=== PATIENT | female | born 1970 | race Caucasian/White ===

== ENCOUNTER 2020-06-12 11:00 | Day surgery (SDC) | payer BC ==
[2020-06-09 11:59] LABS: BASOPHILS 0.2 % (0-2); EOSINOPHILS 4.4 % (0-7); HEMATOCRIT 43.2 % (36.0-48.0); HEMOGLOBIN 14.4 g/dL (12-16); IMMATURE GRANULOCYTES 1.3 % (0-5); LYMPHOCYTE ABS# 2.31 10x3/uL (1.18-3.74); LYMPHOCYTES 24.7 % (15-50); MCH 30.7 pg (26.0-34.0); MCHC 33.3 g/dL (31.0-37.0); MCV 92.1 fL (80.0-100.0); MEAN PLATELET VOLUME 9.7 fL (7.4-10.4); MONOCYTES 6.7 % (2-11); NEUTROPHIL ABS# 5.88 10x3/uL (1.56-6.13); NEUTROPHILS 62.7 % (40-80); PLATELET COUNT 265 10x3/uL (130-400); RBC 4.69 10x6/uL (4.00-5.40); RDW 13.1 % (11.5-14.5); WBC 9.4 10x3/uL (4.8-10.8)
[2020-06-09 12:07] LABS: ANION GAP 11.7 mmol/L (8-16); CALCIUM 8.8 mg/dL (8.5-10.1); CARBON DIOXIDE 25.2 mmol/L (21.0-32.0); POTASSIUM - SERUM 3.9 mmol/L (3.5-5.1)
[2020-06-09 12:17] LABS: SARS-CoV-2 ANTIGEN NEGATIVE- SARS-COV-2 (NEGATIVE)
[2020-06-09 12:22] LABS: UDS - AMPHET NEGATIVE QUAL (NEGATIVE); UDS - BARB NEGATIVE QUAL (NEGATIVE); UDS - BENZO NEGATIVE QUAL (NEGATIVE); UDS - COCAINE NEGATIVE QUAL (NEGATIVE); UDS - OPIATE POSITIVE QUAL (NEGATIVE); UDS - PCP NEGATIVE QUAL (NEGATIVE); UDS - THC NEGATIVE QUAL (NEGATIVE)
[~2020-06-12] VITALS: Ht 167.6 cm; Wt 113.6 kg
--- NOTE | ~2020-06-12 | OP ---
PATIENT NAME: VENANCIO SOMMER MEDICAL RECORD: [id number] :74 LOCATION:D.OPS ADMISSION DATE: SURGEON: DESTIN CASEY MD DATE OF OPERATION: 06/12/2020 PREOPERATIVE DIAGNOSES: 1. Cystocele. 2. Rectocele. POSTOPERATIVE DIAGNOSES: 1. Cystocele. 2. Rectocele. PROCEDURE PERFORMED: 1. Anterior colporrhaphy. 2. Posterior colporrhaphy. 3. Cystoscopy. SURGEON: Destin Casey MD NEONATAL CRITICAL CARE NURSE: Alma Siddiqi ANESTHESIOLOGIST: Dr. Magana ANESTHETIC: General. FINDINGS: Second-degree cystocele was noted as well as a 3rd third-degree rectocele. The mucosa is unremarkable. Vaginal cuff is unremarkable at the time of cystoscopy. Unremarkable vaginal mucosa. Good flow of urine from both ureteral orifices. SPECIMEN REMOVED: Not applicable. SPECIMEN DISPOSITION: Not applicable. ESTIMATED BLOOD LOSS: Less than or equal to 100 cc. FLUIDS: 1200 cc of lactated Ringer's. URINE OUTPUT: 75 cc of clear urine. COMPLICATIONS: None. DRAINS: Lawson to gravity with vaginal packing. INDICATION: The patient is a 50-year-old female with symptomatic cystocele and rectocele. The patient declines pessary and desires definitive treatment. The patient has been counseled in regards to the possible use of biologics. DESCRIPTION OF PROCEDURE: After informed consent was assured, the patient was taken to the operating room where anesthetic was obtained without difficulty. The patient was placed in candycane stirrups and prepped and draped in the usual sterile fashion. Weighted speculum was introduced to retract the posterior vault and Allis clamps placed approximately a 1.5 to 2 cm below the urethra and at the apex of the vagina. This area is now injected with 0.5% lidocaine and OPERATIVE REPORT [id number] VENANCIO SOMMER epinephrine solution. After hydrodissection was completed, an incision was made with a 15 blade. Dissection begins on the right. Using barrel clamps and placing a finger behind the dissected tissue, sharp dissection begins. Once the vaginal mucosa begins to be mobilized, cottonoids were used to bluntly dissect this area free. This was repeated on the patient's contralateral side. [place] retractor was now placed and the vaginal mucosa retracted laterally with good visualization of the endopelvic fascia. Horizontal mattress stitches are now placed from posteriorly to anteriorly and held on hemostats. Gelfoam was placed in the corners and in the midline as the stitches were tied sequentially from posterior anteriorly with good support of the bladder. Before the mucosa was closed, a cystoscopy was performed. The patient has been given methylene blue and there was good efflux of blue-tinged urine from both right and left ureteral orifices. Bladder mucosa is inspected and found to be intact. The bladder was now drained and the Lawson catheter started. The mucosa overlying the anterior repair is now closed with a running stitch of Vicryl. This begins posteriorly and concludes anteriorly. Excess mucosa has been trimmed. Attention is now directed posteriorly. With the 2 Allises at the introitus placed at approximately 5 and 7 o'clock positions, a transverse incision was made. The deep spaces of the posterior vulva injected with 0.5% lidocaine and epinephrine solution. A V-shaped incision is now placed over the perineal body. Elevating the vaginal mucosa of the right posterior vault, sharp dissection begins. This began sharply and concludes with cottonoid blunt dissection. This was repeated on the patient's contralateral side. Once the tissues had been mobilized, the over-glove was placed on the left hand of the grain wafer machine operator, inserted into the rectum and the full defect is observed. Endopelvic fascia was identified in both right and left sides of the defect and using horizontal mattress stitches beginning posteriorly and working anteriorly, the defect is closed. Again, Gelfoam was used to obtain hemostasis. The posterior mucosa is now trimmed and closed with a running stitch of Vicryl. The stitches taken through the introitus down at the most posterior aspect of the perineal incision, and the skin reapproximated with a subcuticular close and then passed back into the vagina and tied. After this stitch has been secured, vaginal packing was placed after placing petroleum jelly and triple antibiotic solution on this. The patient was taken down from [facility] and went to the recovery area in stable condition. All instruments and needle count as well as sponge and cottonoid count is correct times 2. TRANSINT:[id number] Voice Confirmation ID: [id number] DOCUMENT ID: [id number] DESTIN CASEY MD CC: [id number] DICTATION DATE: 06/24/20 161 MILK RECEIVER TANK TRUCK: 06/25/20 0009 [facility] 06/13/[address] [facility] [address] [id number]
[2020-06-12 08:57] VITALS: BP 114/70; BMI 40.6
[~2020-06-12 11:00] MED LIST: BENADRYL25 MG PO; CENTRUM SILVER1 EAC3 PO; CYCLOBENZAPRINE10 MG PO; DITROPAN XL 1010 MG PO; ESTRACE1 MG PO; FENOFIBRATE160 MG PO; HYDROCODON-ACE1 EA10; LISINOPRIL-HCT1 EAC8 PO; MOBIC7.5 MG PO; MUCINEX DM ER1 EAC1 PO; POTASSIUM CHLO20 MEQ PO; PROZAC20 MG PO
[2020-06-12 16:44] VITALS: BP 109/60
--- NOTE | 2020-06-12 16:45 | NUR ---
RECEIVED BY ROMA FROM RECOVERY ROOM, SHE IS AWAKE AND ABLE TO MOVE SELF OVER TO ROOM BED WITHOUT COMPLAINT. IV TO LEFT HAND INFUSING LR VIA PUMP PER ORDERS. SELBY CATH TO BEDSIDE DRAIN WITH 100ML CLEAR URINE NOTED. PT C/O PRESSURE FROM VAG PACKING BUT DENIES PAIN FROM THIS, RATES PAIN AT 5/10 IN LOWER ABDOMEN. O2 VIA NC AT 2L/MIN. SHE DENIES NAUSEA AND ASKING FOR SPRITE TO DRINK. DIETARY NOTIFIED FOR REGULAR DIET TRAY. SIDE RAILS UP X 2 WITH CALL LIGHT IN REACH.
--- NOTE | 2020-06-12 17:30 | NUR ---
TORDAL DILUTED WITH 3ML NS GIVEN IVP PER ORDERS. PT RATES PAIN AT 5/10. REGUALR DIET BROUGHT TO ROOM AND PT ABLE TO SIT HERSELF UP TO EAT WITHOUT COMPLAINT. SIDE RAILS UP X 2 WITH CALL LIGHT IN REACH.
--- NOTE | 2020-06-12 19:40 | NUR ---
ROUNDS MADE, PT RESTING, INFORMED PT THAT I WILL BE BACK SHORTLY TO DO ASSESSMENT AND TRANSFER HER TO ANOTHR ROOM, PT VERBALIZES UNDERSTANDING, DENIES NEEDS AT THIS TIME
[2020-06-12 20:38] VITALS: BP 107/56; Ht 167.6 cm; Wt 113.6 kg
--- NOTE | 2020-06-12 20:38 | NUR ---
PT TRANSFERRED VIA BED TO ROOM 1278 PER THIS RN AND FANNY VALERIO RN, ASSESSMENT PER FLOW SHEET, ADMISSION HISTORY AND ASSESSMENT DONE PER FLOW SHEET, IV IN LEFT HAND INTACT WITH NO REDNESS OR EDEMA INFUSING VIA PUMP NS AT 125 ML/HR, SELBY CATH AND VAG PACK INTACT, PT C/O PAIN AND SLIGHT NAUSEA, WILL ADM PAIN MED AND ZOFRAN
--- NOTE | 2020-06-12 21:05 | NUR ---
ADM PAIN MED AND ZOFRAN, NEW BAG OF LR HUNG PER MD ORDERS, SEE EMAR, FRESH H20 AND CRACKERS SERVED, PT ORIENTED TO ROOM, BED IN LOW POSITION, SIDE RAILS X 2, CALL LIGHT IN REACH
--- NOTE | 2020-06-12 22:24 | NUR ---
PT AROUSES TO OPENING OF DOOR, DENIES NEEDS OR PAIN AT THIS TIME
[2020-06-13 00:08] VITALS: BP 101/59
--- NOTE | 2020-06-13 00:08 | NUR ---
PT AWAKE, VS OBTAINED, PT STATES "I FEEL MORE UNCOMFORTABLE ON THE LEFT SIDE OF MY VAGINA", VAGINA ASSESSED, VAGINA INTACT WITH NO REDNESS OR EDEMA, VAG PACK AND SELBY IN PLACE, ADM NEURONTIN PER MD ORDERS, SEE EMAR, WITH FRESH H20, EMPTIED SELBY CATH, FRESH H20 SERVED, PT DENIES FURTHER NEEDS AT THIS TIME
--- NOTE | 2020-06-13 02:55 | NUR ---
PT KETTLEMAN LIGHT, PT C/O VAG PAIN, ADM PERCOCET PER MD ORDERS, SEE EMAR, PT DENIES FURTHER NEEDS
[2020-06-13 04:16] VITALS: BP 102/64
--- NOTE | 2020-06-13 04:16 | NUR ---
PT AROUSES TO OPENING OF DOOR, VS OBTAINED, SELBY CATH EMPTIED, PUMPS CLEARED, ADM TORADOL SIVP PER MD ORDERS, SEE EMAR, SCD'S CONTINUE ON AND WORKING PROPERLY, PT REQUESTED AND SERVED FRESH H20, DENIES FURTHER NEEDS
[2020-06-13 05:57] LABS: HEMATOCRIT 35.5 % (36.0-48.0); HEMOGLOBIN 11.6 g/dL (12-16); MCH 30.4 pg (26.0-34.0); MCHC 32.7 g/dL (31.0-37.0); MCV 93.2 fL (80.0-100.0); MEAN PLATELET VOLUME 9.7 fL (7.4-10.4); RBC 3.81 10x6/uL (4.00-5.40); RDW 12.6 % (11.5-14.5); WBC 15.1 10x3/uL (4.8-10.8)
--- NOTE | 2020-06-13 06:53 | NUR ---
SHIFT REPORT TO DAY SHIFT
[2020-06-13 07:34] VITALS: BP 132/69
--- NOTE | 2020-06-13 07:34 | NUR ---
AM ASSESSMENT COMPLETED CHARTED TO FLOWSHEET. VSS AND PT RATES PAIN AT 4/10 BUT DENIES PAIN MED AT THIS TIME. IV TO LEFT HAND PATENT WITH NO TENDERNESS WITH TOUCH AND INFUSINN LR PER ORDERS. SELBY CATH TO BEDSIDE GRAIN WITH 100ML CLEAR URINE NOTED. SCD'S BILAT AND ON PUMP. REGULAR DIET PER DIETARY. SIDE RAILS UP X 2 WITH CALL LIGHT IN REACH.
--- NOTE | 2020-06-13 08:12 | NUR ---
PT COMPLAINS OF ITCHING ON HER ARMS THAT SHE STATES WAS PRESENT PRIOR TO ADMISSION. ASKING FOR BENADRYL CREAM OR TABLET IF POSSIBLE. DR CASEY CALLED FOR NEW ORDERS, REPORT GIVEN OF PT REQUEST FO PO BENADRYL, NEW ORDERS RECEIVED.
--- NOTE | 2020-06-13 10:30 | NUR ---
RATES PAIN AT 6/10, MEDS GIVEN SCANNED TO EMAR. LARGE ICE WATER REQUSTED.
--- NOTE | 2020-06-13 10:48 | NUR ---
IV DISCONTINUED AND REMOVED WITH CATH INTACT. PT ASK THAT SHE BE ABLE TO EAT LUNCH THEN GET SELBY CATH TAKEN OUT. REASSURED HER THAT WAS OK AND TO PLEASE CALL NURSE WHEN SHE IS READY.
--- NOTE | 2020-06-13 11:58 | NUR ---
CALLED TO ROOM, RATES PAIN AT 2/10. VERBALLY EXPLAINED TO PT WHAT TO EXPECT WITH VAG PACKING REMOVEAL AND SHE DENIES QUESTIONS. SELBY BULP/REMOVEAL PER PROTOCOL AND PACKING REMOVED INTACT WITHOUT DIFFICULTY. PT TOLERATES WELL AND DENIES INCREASED PAIN AT THIS TIME. SHE IS ABLE TO SIT UP ON SIDE OF BED WITHOUT C/O NAUSEA OR DIZZINESS AMB TO BATHROOM PER SELF AND VOIDS APPROX 75ML DARK URINE. PT GIVEN WARM WET WASH CLOTHS, OLEGARIO PAD AND MESH BRIEFS AND CLEAN GOWN. WALKING ABOUT ROOM WITHOUT COMPLAINTS.
--- NOTE | 2020-06-13 13:47 | NUR ---
PAIN MED GIVEN FOR PAIN AT 10/04. LARGE ICE WATER REQUESTED. PT UNDERSTANDS TO LET NURSE KNOW WHEN SHE VOIDS. NO OTHER NEEDS AT THIS TIME.
--- NOTE | 2020-06-13 14:00 | NUR ---
CALLED TO ROOM, PT HAS VOIDED 400ML WITHOUT COMPLAINTS. DR CASEY NOTIFIED AND MAY PROCEED WITH DISCHARGE.
[2020-06-13] MEDS ORDERED: NEURONTIN 300300 MG PO (14:04)
[2020-06-13] MEDS ORDERED: PERCOCET 7.5/321 TAB PO (14:05)
--- NOTE | 2020-06-13 14:15 | NUR ---
VERBAL AND WRITTEN D/C INSTRUCTIONS GONE OVER WITH WRITTEN SCRIPTS FOR PERCOCET 7.5/325MG AND NEUROTIN 300MG WITH PRINTED INFO ON EACH. SHE DENIES QUESTIONS OR CONCERNS. TAKEN OUT BY WHEELCHAIR HOME BY PRIVATE CAR WITH FAMILY
== END 2020-06-13 14:27 | disposition home or self-care (01) ==
LOC: D.OPS 11:00 → D.LD 17:25 → D.SDCHOLD 06-13 13:50 → D.LD 06-13 13:52 → D.OPS 06-13 14:27
PROVIDERS: ATTEND Obstetrics & Gynecology
DX: N81.10 Cystocele, unspecified (principal); N81.6 Rectocele

== ENCOUNTER 2020-06-15 21:53 | Inpatient (IN) | payer MEDICAID ==
[~2020-06-15] VITALS: Ht 167.6 cm; Wt 127.5 kg
[~2020-06-15 21:53] MED LIST changes: +NEURONTIN 300300 MG PO; +PERCOCET 7.5/321 TAB PO
[2020-06-15 22:40] LABS: BASOPHILS 0.2 % (0-2); EOSINOPHILS 0.3 % (0-7); HEMATOCRIT 45.1 % (36.0-48.0); HEMOGLOBIN 15.1 g/dL (12-16); IMMATURE GRANULOCYTES 0.5 % (0-5); LYMPHOCYTE ABS# 0.52 10x3/uL (1.18-3.74); MCHC 33.5 g/dL (31.0-37.0); MCV 92.6 fL (80.0-100.0); MONOCYTES 6.3 % (2-11); NEUTROPHIL ABS# 15.66 10x3/uL (1.56-6.13); NEUTROPHILS 89.7 % (40-80); RBC 4.87 10x6/uL (4.00-5.40); RDW 12.9 % (11.5-14.5); WBC 17.5 10x3/uL (4.8-10.8)
[2020-06-15 22:41] LABS: PLATELET COUNT 257 10x3/uL (130-400)
[2020-06-15 22:48] LABS: ANION GAP 13.5 mmol/L (8-16); CALCIUM 9.5 mg/dL (8.5-10.1); CARBON DIOXIDE 24.9 mmol/L (21.0-32.0); CREATININE - SERUM 1.2 mg/dL (0.6-1.3); POTASSIUM - SERUM 4.4 mmol/L (3.5-5.1)
[2020-06-15 22:55] LABS: ALBUMIN 3.2 g/dL (3.4-5.0); BILIRUBIN - TOTAL 0.74 mg/dL (0.2-1.3); PROTEIN - SERUM 7.4 g/dL (6.4-8.2)
[2020-06-16] VITALS (43 sets, daily range): BP systolic 52–115; BP diastolic 9–96; BMI 40.4
[2020-06-16 00:53] LABS: BILIRUBIN NEGATIVE (NEGATIVE); KETONE SMALL mg/dL (NEGATIVE); NITRITE NEGATIVE (NEGATIVE); UROBILINOGEN NORMAL mg/dL (< 2)
[2020-06-16 00:55] LABS: BACTERIA FEW HPF (NONE SEEN); SQUAMOUS EPITHELIAL 0-5 HPF (0-4); WHITE CELLS - URINE 0-5 HPF (0-4)
--- NOTE | 2020-06-16 01:35 | NUR ---
1000 ML DARK ANGELICA URINE EMPTIED FROM SELBY
--- NOTE | 2020-06-16 02:05 | NUR ---
PT REC'D FROM ER ON STRETCHER AT THIS TIME. LARGE SEMI SOLID STOOL NOTED.. SELBY CATH ON PLACE. PT CLEANED AND REPOSITIONED AT THIS TIME. PT 87% ON ROOM AIR. O2 PLACED AT 2 L VIA NC. 0225 O2 SAT NOTED WITH MINIMAL CHANGE. OXYGEN INCREASED TO 3L VIA NC.PT DROWSEY AND BREATHING THROUGH MOUTH. Taj STEWART RN
--- NOTE | 2020-06-16 02:25 | NUR ---
PT OXYGEN SATURATION REMAINS LOW AT THIS TIME. PULSE OX 86% ON 2 LITERS O2 NASAL CANULA. O2 INCREASED TO 3 L N/C. L NAUN STEWART
--- NOTE | 2020-06-16 02:47 | NUR ---
PT O2 SATURATION 87% AT THIS TIME. OXYGEN INCREASED TO 3.5 L VIA NC. Taj STEWART RN
--- NOTE | 2020-06-16 03:00 | NUR ---
PT 90% ON 4L NC WITH CURRENT OXYGEN SATURATION 92-94%. L PAT RN
--- NOTE | 2020-06-16 03:32 | NUR ---
PT WITH O2 AT OF 91% O2 PLACED VIA MASK AT 5 L. 0340 MD CALLED AT THIS TIME. REPORTED DECREASED O2 SATSOF 91-92% ON 5 L VIA FACE MASK. ORDER REC'D FOR ABG AND CT FOR PE. Taj STEWART RN
--- NOTE | 2020-06-16 03:45 | NUR ---
RADIOLOGY CALLED AT THIS TIME. INFORMED OF NEED FOR CT. RADIOLOGY STATES THAT SHE IS UNABLE TO RECEIVE CONTRAST FOR 24 HOURS BECAUSE SHE HAS HAD CONTRAST AND VOMITED PROFUSELU AND PROTOCOL IS THAT NO ADDITIONAL CONTRAST BE GIVEN WITH IN 24 HOURS. RESPIRATORY ALSO NOTIFIED OD NEED FOR ABG. RESPIRATORY ON UNIT AT 0350 FOR PATIENT ASSESSMENT. RESPIRATORY PLACED OT ON 5 L VIA NC AND STATES THAT THEY WILL RETURN TO DRAW ABGS. Taj STEWART RN
--- NOTE | 2020-06-16 03:53 | NUR ---
CALLED AT THIS TIME. INFORMED FOF INABILITY TO PERFORM CT DUE TO PREVIOUS CONTRAST ADMINISTRATION. VQ SCAN ORDERED ALONG WITH CHEST XRAY. Taj STEWART RN
--- NOTE | 2020-06-16 04:15 | NUR ---
RADIOLOGY HERE FOR [facility] X RAY. Taj STEWART RN
--- NOTE | 2020-06-16 04:28 | NUR ---
RESPIRATORY HERE FOR ABGS. Taj STEWART RN
--- NOTE | 2020-06-16 06:36 | NUR ---
DR CASEY CALLED UNIT AT THIS TIME. INFORMED OF ABB AND CXR RESULTS. ALSO INFORMED OF PT URINE OUT PUT AND INPUT WITH CURRENT O2 SATS. ORDER REC'D TO D/C DILAUDD. AND REORDER HOME DOSE OF HYDROCODONE, ORDER PATIENT A REGULAR DIET AND BOLUS PATIENT A FULL LITER OF CURRENT IV FLUIDS. BOLUS STARTED AT 0643 TO THE LEFT HAND APPROXIMATELY 500 IN CURRENT BAG. Taj STEWART RN
--- NOTE | 2020-06-16 07:14 | NUR ---
OFF UNIT WITH RADIO RECORDER.
--- NOTE | 2020-06-16 07:57 | NUR ---
REC'D BACK TO ROOM FROM RADIOLOGY WITH C/O PAIN.
--- NOTE | 2020-06-16 08:21 | NUR ---
SHIFT ASSESSMENT COMPLETED. VSS WITH TACHYCARDIA NOTED, O2 SAT STABLE ON 5 L O2 AT 97%. DECREASED O2 TO 4L WITH DROP OF SATS INTO HIGH 80'S, O2 INCREASED BACK TO 5L WITH INCREASE IN SATS TO 92%-98%. DROWSY BUT EASILY AROUSABLE TO VOICE, FALLS ASLEEP MID SENTENCE BUT ON SPOKEN TO PICKS BACK UP WITH SENTENCE/THOUGHT. BREATH SOUNDS CLEAR AND EQUAL BILATERALLY. BOWELS SOUNDS PRESENT AND ACTIVE X4 QUADRANTS, ABD DISTENDED, REPORTS INCREASED TENDERNESS TO ABD. SELBY PRESENT AND DRAINING TO BEDSIDE DRAINAGE, URINE ANGELICA COLORED. LOOSE WATERY STOOL NOTED. PERICARE DONE, GOWN LINENS, TOWELS AND CHUX CHANGED. VAGINAL SUTURES NOTED, WELL APPROXIMATED, NO S/S OF INFECTION NOTED. REFUSES SCD'S AT THIS TIME, EDUCATION PROVIDED. POC DISCUSSED WITH PT. BED IN LOW POSITION WITH SRUP X2. CALL LIGHT AND PHONE WITHIN REACH.
--- NOTE | 2020-06-16 08:49 | NUR ---
PT'S DAUGHTER CALLS UNIT REQUESTING STATUS UPDATE. VERBAL PERMISSION FROM PT FOR RN TO SPEAK WITH DAUGHTER. PT DENIES WANTING TO SPEAK TO SPEAK WITH PT D/T PAIN, STATES THAT PAIN MEDICATION HAS NOT RELIEVED PAIN AT THIS TIME.
--- NOTE | 2020-06-16 09:02 | NUR ---
RN BACK TO ROOM. PT AROUSES TO VOICE, CONTINUES TO REPORT THAT PAIN LEVEL REMAINS 9/10. REQUESTING ADDITIONAL INTERVENTION. WILL NOTIFY DR. CASEY.
--- NOTE | 2020-06-16 09:11 | NUR ---
SPOKE WITH DR. CASEY REGARDING PT C/O PAIN AND INTERVENTIONS TO THIS POINT WELL PT'S NEURO STATUS. PER DR. CASEY HE WILL PLACE ORDERS.
--- NOTE | 2020-06-16 09:13 | NUR ---
BOLUS COMPLETED. RATED DECREASED BACK TO 125 MLS/HR.
--- NOTE | 2020-06-16 10:24 | NUR ---
TO ROOM TO CHECK ON PATIENT. PT RESTING WITH EYES CLOSED. BP ALARM SOUNDING-PT AROUSED THIS NURSE WALKED TO MONITOR TO SILENCE ALARM. PT STATES 'I AM HURTING A LOT". PT STATES PAIN IS ACROSS LOWER ABDOMEN. PT'S PRIMARY NURSE NOTIFIED OF REPORTED PAIN.
--- NOTE | 2020-06-16 11:07 | NUR ---
DR. CASEY AT BEDSIDE DISCUSSING POC WITH PT AND PAIN MGMT.
--- NOTE | 2020-06-16 11:32 | NUR ---
NEW BAG FLUIDS HUNG TO CONTINUE TO INFUSE AT BOLUS RATE FOR 300 MLS. PT AA&OX3. REQUESTING EXTRA PILLOWS. ENCOURAGED PO INTAKE OF FLUIDS AND FOODS, VERBALIZES UNDERSTANDING.
--- NOTE | 2020-06-16 11:54 | NUR ---
500 MLS D5LR FLUID BOLUS COMPELTED PRE ORDER. RATE DECREASED BACK TO 125 MLS/HR.
--- NOTE | 2020-06-16 11:59 | NUR ---
DR. CASEY NOTIFIED THAT PT MEETS CRITERIA FOR SEPSIS MEASURES. ORDERS REC'D AND ORDERS REC'D TO TRANSFER TO MED-SURG.
--- NOTE | 2020-06-16 12:11 | NUR ---
D5LR FLUID RATE INCREASED TO 150 MLS/HR.
--- NOTE | 2020-06-16 12:17 | NUR ---
V/S GIVEN IN REPORT TO DR. ESCOBEDO PER Vero STEVENS RN
--- NOTE | 2020-06-16 12:18 | NUR ---
SPOKE WITH DR. ESCOBEDO, PER MD, TRANSFER TO ICU, MD WILL SEE PT THERE. QUALITY ASSURANCE SUPERVISOR CALLED FOR BED ASSIGNMENT.
--- NOTE | 2020-06-16 13:07 | NUR ---
SPOKE WITH WHITNEY IN ICU. AWAITING ROOM TO BE CLEANED FOR TRANSFER.
--- NOTE | 2020-06-16 16:00 | NUR ---
REASESSED PAIN AFTER GIVING MORPHINE PRN AND SCHEDULED TORADOL. PT WAS RESTING WITH EYES CLOSED AND UPON VERBAL AROUSE. PT REPORTS PAIN RATED 8/10.
[2020-06-16 17:57] LABS: BASOPHILS 0.2 % (0-2); EOSINOPHILS 0.2 % (0-7); HEMATOCRIT 46.9 % (36.0-48.0); HEMOGLOBIN 15.5 g/dL (12-16); IMMATURE GRANULOCYTES 0.5 % (0-5); LYMPHOCYTE ABS# 0.43 10x3/uL (1.18-3.74); LYMPHOCYTES 10.2 % (15-50); MCH 30.9 pg (26.0-34.0); MCV 93.6 fL (80.0-100.0); MEAN PLATELET VOLUME 9.6 fL (7.4-10.4); MONOCYTES 9.7 % (2-11); NEUTROPHIL ABS# 3.34 10x3/uL (1.56-6.13); NEUTROPHILS 79.2 % (40-80); PLATELET COUNT 290 10x3/uL (130-400); RBC 5.01 10x6/uL (4.00-5.40); RDW 13.3 % (11.5-14.5)
[2020-06-16 18:00] LABS: WBC 4.2 10x3/uL (4.8-10.8)
[2020-06-16 19:22] LABS: ANION GAP 17.9 mmol/L (8-16); CALCIUM 8.4 mg/dL (8.5-10.1); POTASSIUM - SERUM 4.9 mmol/L (3.5-5.1)
[2020-06-16 19:27] LABS: BILIRUBIN - TOTAL 2.3 mg/dL (0.2-1.3); PROTEIN - SERUM 5.6 g/dL (6.4-8.2)
[2020-06-16 19:29] LABS: ALBUMIN 2.1 g/dL (3.4-5.0); CREATININE - SERUM 2.6 mg/dL (0.6-1.3)
[2020-06-17] VITALS (92 sets, daily range): BP systolic 64–137; BP diastolic 29–98; Ht 167.6 cm; Wt 127.5 kg
--- NOTE | 2020-06-17 04:50 | NUR ---
0000 LARGE LIQUID BM. PT STATES FELT LARGE PRESSURE IN ABD AND LARGE STOOL QUICKLY FOLLOWED. APPROX 500CC. 0043.PAGED ONCALL FOR VINAY KAMINSKI. UPDATED ON STATUS. MAX ON LEVO AND MAP 50-55 ORDER FOR 500CCNS BOLUS AND CONSULT NEPHRO. NEPHRO CONSULTED AT [address] CARRILLO AT 0120. ORDERS TO USE VASO IF NEEDED IF MAP SUSTAINED BELOW 65 BUT TO HOLD IF CAN. ORDER PUT IN AND ORDERS FOR LABS PLACED GIVEN. 0430 MAP MAINTIANING ON MAX LEVO. HOLDING ON VASO. PT REMAINS AWAKE AND ALERT. PT GIVEN POC AT ALL POINTS THROUGH NIGHT. FAMILY AND PT ALSO UPDATED AT START OF NIGHT
[2020-06-17 05:17] LABS: HEMATOCRIT 44.2 % (36.0-48.0); HEMOGLOBIN 14.6 g/dL (12-16); LYMPHOCYTES 10.4 % (15-50); MCH 30.9 pg (26.0-34.0); MCV 93.4 fL (80.0-100.0); NEUTROPHILS 75.3 % (40-80); PLATELET COUNT 303 10x3/uL (130-400); RBC 4.73 10x6/uL (4.00-5.40); RDW 13.1 % (11.5-14.5); WBC 5.1 10x3/uL (4.8-10.8)
[2020-06-17 05:26] LABS: ALBUMIN 1.7 g/dL (3.4-5.0); ALKALINE PHOSPHATASE 56 U/L (30-120); ALT (SGPT) 70 U/L (10-68); BILIRUBIN - TOTAL 1.75 mg/dL (0.2-1.3); CALC OSMOLALITY 289 mosm/kg (275-300); CALCIUM 7.9 mg/dL (8.5-10.1); CARBON DIOXIDE 21.9 mmol/L (21.0-32.0); CHLORIDE - SERUM 103 mmol/L (98-107); CREATINE KINASE 153 UL (21-215); CREATININE - SERUM 2.9 mg/dL (0.6-1.3); GLUCOSE 178 mg/dL (74-106); POTASSIUM - SERUM 4.9 mmol/L (3.5-5.1); PROTEIN - SERUM 5.6 g/dL (6.4-8.2); SODIUM 137 mmol/L (136-145); UREA NITROGEN 47 mg/dL (7-18); VANCOMYCIN - RANDOM 16.4 ug/mL (10.0-20.0); eGFR NON AFRICAN AMERICAN 18 mL/min (90-120)
[2020-06-17 05:35] LABS: C-REACTIVE PROTEIN < 0.2 mg/dL (0.0-0.9)
--- NOTE | 2020-06-17 11:12 | NUR ---
PT HAD 2 BACK TO BACK LARGE LOOSE STOOL BM. PT CLEANED AND CHG BATH GIVEN WITH COMPLETE LINEN CHANGE WELL
--- NOTE | 2020-06-17 13:10 | NUR ---
PT WENT INTO AFIB RATE 160S. EKG OBTAINED. PT IN AFIB WITH RVR. CARDIO CONSULTED AND NEW ORDER REC' FOR AMIO AT 1 MG/MIN FOR 6 HR THEN DECREASE TO 0.5 MG/MIN.
[2020-06-17 15:40] LABS: HEMATOCRIT 36.9 % (36.0-48.0); HEMOGLOBIN 12.3 g/dL (12-16); MCHC 33.3 g/dL (31.0-37.0); MCV 92.9 fL (80.0-100.0); MEAN PLATELET VOLUME 9.5 fL (7.4-10.4); NEUTROPHIL ABS# 3.85 10x3/uL (1.56-6.13); RBC 3.97 10x6/uL (4.00-5.40); RDW 13.3 % (11.5-14.5); WBC 5.6 10x3/uL (4.8-10.8)
[2020-06-17 15:41] LABS: PLATELET COUNT 203 10x3/uL (130-400)
[2020-06-17 17:02] LABS: INR 1.59 (0.85-1.17); PROTIME 17.6 SECONDS (11.6-15.0)
[2020-06-17 17:17] LABS: ALBUMIN 1.9 g/dL (3.4-5.0); BILIRUBIN - TOTAL 0.86 mg/dL (0.2-1.3); CALCIUM 7.4 mg/dL (8.5-10.1); CREATININE - SERUM 2.4 mg/dL (0.6-1.3); POTASSIUM - SERUM 4.9 mmol/L (3.5-5.1); PROTEIN - SERUM 5.3 g/dL (6.4-8.2)
[2020-06-17 17:22] LABS: ANION GAP 19.9 mmol/L (8-16); LYMPHOCYTES 19 % (15-50); MONOCYTES 8 % (2-11); NEUTROPHILS 31 % (40-80); PLATELET ESTIMATE NORMAL
--- NOTE | 2020-06-17 18:27 | NUR ---
U/S AT BEDSIDE FOR ECHO
[2020-06-18] VITALS (55 sets, daily range): BP systolic 88–149; BP diastolic 8–92
--- NOTE | 2020-06-18 08:30 | NUR ---
DAUGHTER CALLED, UPDATE GIVEN.
--- NOTE | 2020-06-18 09:30 | NUR ---
DR. LOCKHART HERE FOR ROUNDS. ORDERS RECEIVED.
[2020-06-18 09:47] LABS: BASOPHILS 0.1 % (0-2); EOSINOPHILS 0.5 % (0-7); HEMOGLOBIN 10.6 g/dL (12-16); LYMPHOCYTE ABS# 0.98 10x3/uL (1.18-3.74); LYMPHOCYTES 13.1 % (15-50); MCH 30.8 pg (26.0-34.0); MCHC 33.1 g/dL (31.0-37.0); MEAN PLATELET VOLUME 9.1 fL (7.4-10.4); MONOCYTES 1.5 % (2-11); NEUTROPHIL ABS# 6.18 10x3/uL (1.56-6.13); NEUTROPHILS 82.8 % (40-80); PLATELET COUNT 172 10x3/uL (130-400); RBC 3.44 10x6/uL (4.00-5.40); RDW 13.7 % (11.5-14.5)
[2020-06-18 09:48] LABS: WBC 7.5 10x3/uL (4.8-10.8)
[2020-06-18 10:01] LABS: CALCIUM 7.3 mg/dL (8.5-10.1)
[2020-06-18 10:02] LABS: ANION GAP 12.6 mmol/L (8-16); CARBON DIOXIDE 24.4 mmol/L (21.0-32.0); CREATININE - SERUM 1.5 mg/dL (0.6-1.3)
--- NOTE | 2020-06-18 10:02 | CN ---
PATIENT NAME:VENANCIO SOMMER MEDICAL RECORD: [id number] : 74 LOCATION:[place].2309 ADMIT DATE: 06/16/20 ACCOUNT: [id number] CONSULTING PHYSICIAN: SHIRA DICKSON MD REFERRING PHYSICIAN: DESTIN CASEY MD DATE OF CONSULTATION: 06/17/2020 HISTORY OF PRESENT ILLNESS: A 50-year-old female with no cardiovascular history was admitted with colitis, probable sepsis with hypotension and tachycardia subsequently developed atrial fibrillation with RVR, subsequently has been started on a Cordarone drip, with actually confucianism to normal sinus rhythm at this point, we are asked to see her concerning her cardiovascular status. PAST MEDICAL HISTORY: Otherwise includes history of; 1. Hypertension. 2. Hyperlipidemia. 3. Recent cystocele repair. MEDICATIONS: Typically include Flexeril 10 mg p.o. at bedtime, fenofibrate 160 mg p.o. daily, lisinopril/hydrochlorothiazide 20/25 daily, Prozac 20 mg p.o. daily, Neurontin 300 t.i.d., [place] 10/325, Mobic 15 daily. ALLERGIES: None known. SOCIAL HISTORY: Nonsmoker, nondrinker. No illicit drug use. Easily takes care of all her ADLs. REVIEW OF SYSTEMS: The patient reports easy bruising but reports no swollen glands. The patient reports no fever, no night sweats, no significant weight gain, no significant weight loss. No significant exercise tolerance. The patient reports no dry eyes, no irritation, no vision change. Patient reports no difficulty hearing and no ear pain. Patient reports no frequent nose bleeds or nose and sinus problems. Patient reports on arm pain on exertion. No shortness of breath while lying down. No history of heart murmur. Patient reports no cough, no wheezing or coughing up blood. Patient reports no abdominal pain, no vomiting. Normal appetite. No diarrhea and not vomiting blood. No nausea and no constipation. Patient reports no incontinence. No difficulty urinating. No hematuria. No increased frequency. Patient reports no muscle aches. No weakness, no arthralgias, no back pain. No swelling of the extremities. Patient reports no abnormal mole, no jaundice, no rashes. Reports no loss of consciousness. No weakness and no numbness. No seizures, dizziness, or headaches. The patient reports no depression, no sleep disturbance, feeling safe in a relationship and no alcohol abuse. Patient reports on fatigue. Reports no runny nose or sinus pressure. No itching, no hives, and no frequent sneezing. PHYSICAL EXAMINATION: GENERAL: No acute distress, appears stated age. VITAL SIGNS: 121/57, pulse 99 and regular. HEENT: Normocephalic, atraumatic. NECK: No JVD or bruit. HEART: Regular. Questionable S4 gallop. LUNGS: Good air excursion. ABDOMEN: Soft and nontender. Pulses well preserved, 2+. EXTREMITIES: No edema. CONSULT REPORT [id number] VENANCIO SOMMER IMPRESSION: 1. Atrial fibrillation. Suspect secondary to increased due to underlying sepsis, in any case catecholamine drive, etc., responding nicely with chemical cardioversion. Probably would continue this agent for 4 weeks after recovers from current illness. 2. Postoperative atrial fibrillation. Doubt will need long-term antiarrhythmic therapy. We will check echocardiogram study to make sure structurally sound cardiovascular. Further recommendation based on the above. Thank you for the consultation. TRANSINT:[id number] Voice Confirmation ID: [id number] DOCUMENT ID: [id number] SHIRA DICKSON MD at 1002 CC: [id number] DICTATION DATE: 06/17/20 1438 BUSINESS PROPOSAL REP: [id number] ADM IN [id number] [place] [address]
--- NOTE | 2020-06-18 10:15 | NUR ---
HAD 2 LOOSE, BROWN BMS. IS CONTINENT OF HER STOOL. FLOR DOSS CNA, REPORTS THE VOLUME OF THESE STOOLS IS APPROX. HALF THE VOLUME OF WHAT IT WAS YESTERDAY.
--- NOTE | 2020-06-18 10:58 | NUR ---
PAGED DR. LOCKHART WITH LAB RESULTS. HE REVIEWED. NO NEW ORDERS.
--- NOTE | 2020-06-18 13:44 | NUR ---
C/O FEELING HOT. TEMP 98.2. THE REST OF HER BODY FEELS WARM, BUT HER HEAD FEELS HOT AND SHE IS VISIBALLY FLUSHED. DR. CARRILLO HERE FOR ROUNDS. REPORTED THIS AND NOTED THAT HER VANC JUST FINISHED. ORDERS RECEIVED.
--- NOTE | 2020-06-18 14:51 | NUR ---
DR. DIEZ HERE FOR ROUNDS. ORDERS RECEIVED.
[2020-06-19] VITALS (11 sets, daily range): BP systolic 106–143; BP diastolic 72–92
[2020-06-19 04:37] LABS: CREATININE - SERUM 1.2 mg/dL (0.6-1.3); MAGNESIUM - SERUM 2.7 mg/dL (1.8-2.4); PHOSPHOROUS 2.1 mg/dL (2.5-4.9); VANCOMYCIN - RANDOM 8.5 ug/mL (10.0-20.0)
--- NOTE | 2020-06-19 07:13 | NUR ---
CALLED DR. ESCOBEDO AFTER NOTING VANC ORDERED. REPORTED FLUSHING AND HOT FACE YESTERDAY AFTER VANC INFUSION. HE ORDERS TO D/C VANC AND ADD CLINDAMYCIN.
[2020-06-19 07:45] LABS: ANION GAP 12.8 mmol/L (8-16); CALCIUM 7.1 mg/dL (8.5-10.1); CREATININE - SERUM 1.1 mg/dL (0.6-1.3); POTASSIUM - SERUM 3.8 mmol/L (3.5-5.1)
--- NOTE | 2020-06-19 08:37 | NUR ---
SELBY REMOVED. PUREWICK IN PLACE. TOLERATED WELL.
--- NOTE | 2020-06-19 11:15 | NUR ---
REPORT GIVEN TO LACIE. FAMILY NOTIFIED.
--- NOTE | 2020-06-19 13:54 | NUR ---
Nutrition follow-up: Pt just out of ICU Diet advanced to full liquids today Labs reviewed WT: 281# Pt reports still with nausea and belching +BM x 2; firmer RDN will order Ensure with full liquids meals Follow-up on advancement towards nutrition goals: 06/23/20
--- NOTE | 2020-06-19 19:30 | NUR ---
PT IN BED, AAO X 3, RESP EVEN AND UNLABORED, NO DISTRESS NOTED, CL IN REACH, SR UP X 2.
[2020-06-20 00:03] VITALS: BP 109/70
--- NOTE | 2020-06-20 02:28 | NUR ---
I have reviewed this patient and I concur with the Shift Assessment completed by the Licensed Practical Nurse today this shift.
[2020-06-20 04:08] VITALS: BP 118/74
[2020-06-20 04:55] LABS: BASOPHILS 0.5 % (0-2); EOSINOPHILS 1.9 % (0-7); IMMATURE GRANULOCYTES 1.5 % (0-5); LYMPHOCYTE ABS# 1.96 10x3/uL (1.18-3.74); LYMPHOCYTES 17.9 % (15-50); MCH 30.1 pg (26.0-34.0); MCHC 32.3 g/dL (31.0-37.0); MCV 93.4 fL (80.0-100.0); MEAN PLATELET VOLUME 9.2 fL (7.4-10.4); MONOCYTES 15.1 % (2-11); NEUTROPHIL ABS# 6.93 10x3/uL (1.56-6.13); NEUTROPHILS 63.1 % (40-80); RBC 3.32 10x6/uL (4.00-5.40); RDW 13.8 % (11.5-14.5)
[2020-06-20 05:17] LABS: PLATELET COUNT 220 10x3/uL (130-400)
[2020-06-20 05:32] LABS: ALBUMIN 1.5 g/dL (3.4-5.0); ANION GAP 11.8 mmol/L (8-16); BILIRUBIN - TOTAL 0.13 mg/dL (0.2-1.3); CALCIUM 7.4 mg/dL (8.5-10.1); CARBON DIOXIDE 25.5 mmol/L (21.0-32.0); CREATININE - SERUM 1.1 mg/dL (0.6-1.3); MAGNESIUM - SERUM 2.3 mg/dL (1.8-2.4); POTASSIUM - SERUM 3.3 mmol/L (3.5-5.1)
--- NOTE | 2020-06-20 07:20 | NUR ---
LYING IN BED, AWAKE/ALERT/ORIENTED, T/R SELF AD JANY, HAS A PUREWICK CATH DRAINING CLEAR YELLOW URINE TO CDB IN AMPLE AMT, CATH CARE PROVIDED WITH DAILY BATH AND PRN, CONT OF BOWEL WITH USE OF BEDPAN/BSC AD JANY, PERICARE PROVIDED WITH DAILY BATH AND PRN, DENIES PAIN/OTHER DISCOMFORT AT THIS TIME, CALL LIGHT/PHONE/WATER WITHIN REACH, NO S/S OF ACUTE DISTRESS OBSERVED.
[2020-06-20 08:39] VITALS: BP 129/74
[2020-06-20 19:08] LABS: OVA + PARASITE EXAM Final report (())
[2020-06-20 20:29] VITALS: BP 127/79
--- NOTE | 2020-06-20 21:00 | NUR ---
PT HAD SMALL, LIQUID BM AND REPORTS PASSING GAS.
--- NOTE | 2020-06-20 23:43 | NUR ---
REPORT RECEIVED, WILL CONT POC. PT A&O, UP IN BED, FRIEND AT BEDSIDE. NO S/S OF DISTRESS OBSERVED. RR EVEN AND UNLABORED ON 2L. BED LOCKED AND LOWERED, CL IN REACH. ASSESSMENT COMPLETED AT THIS TIME. WILL CONT TO MONITOR.
[2020-06-21 00:46] VITALS: BP 116/71
[2020-06-21 05:41] LABS: BASOPHILS 0.8 % (0-2); EOSINOPHILS 0.7 % (0-7); HEMATOCRIT 30.4 % (36.0-48.0); HEMOGLOBIN 9.9 g/dL (12-16); IMMATURE GRANULOCYTES 20.3 % (0-5); LYMPHOCYTE ABS# 2.69 10x3/uL (1.18-3.74); LYMPHOCYTES 21.8 % (15-50); MCH 30.1 pg (26.0-34.0); MCHC 32.6 g/dL (31.0-37.0); MCV 92.4 fL (80.0-100.0); MEAN PLATELET VOLUME 9.1 fL (7.4-10.4); NEUTROPHIL ABS# 5.85 10x3/uL (1.56-6.13); NEUTROPHILS 47.4 % (40-80); PLATELET COUNT 223 10x3/uL (130-400); RBC 3.29 10x6/uL (4.00-5.40); RDW 13.8 % (11.5-14.5); WBC 12.3 10x3/uL (4.8-10.8)
[2020-06-21 05:53] VITALS: BP 146/74
[2020-06-21 06:20] LABS: ALBUMIN 1.5 g/dL (3.4-5.0); ANION GAP 10.9 mmol/L (8-16); BILIRUBIN - TOTAL 0.18 mg/dL (0.2-1.3); CALCIUM 7.1 mg/dL (8.5-10.1); CARBON DIOXIDE 25.3 mmol/L (21.0-32.0); MAGNESIUM - SERUM 2.1 mg/dL (1.8-2.4); POTASSIUM - SERUM 3.2 mmol/L (3.5-5.1); PROTEIN - SERUM 4.9 g/dL (6.4-8.2)
--- NOTE | 2020-06-21 07:20 | NUR ---
LYING IN BED, AWAKE/ALERT/ORIENTED, T/R SELF AD JANY, CONT OF B/B WITH ASSIST TO BSC/BEDPAN AD JANY, DENIES PAIN/OTHER DISCOMFORT AT THIS TIME, CALL LIGHT/PHONE/WATER WITHIN REACH, NO S/S OF ACUTE DISTRESS OBSERVED.
[2020-06-21 08:20] VITALS: BP 140/84
[2020-06-21 12:32] VITALS: BP 135/80
[2020-06-21 15:50] VITALS: BP 122/73
[2020-06-21 20:30] VITALS: BP 125/79
--- NOTE | 2020-06-21 22:00 | NUR ---
MEDS PASSED. NO S/S OF DISTRESS. AAOX4. DAUGHTER AT BS. LEFT ARM IV NO GOOD. REMOVED AND COVERED WITH BANDAID. SN INSTRUCTED ON INCENTIVE SPIROMETER. PVU. CLIR BED IN LOWEST POSITION. DENIES ANY OTHER NEEDS OR CONCERNS AT THIS TIME. WILL CONT TO MONITOR.
[2020-06-22 00:30] VITALS: BP 136/78
--- NOTE | 2020-06-22 01:45 | NUR ---
DAUGHTER LEAVING FOR THE NIGHT. PATIENT IN BED, HOB ELEVATED, SUPINE. NO S/S OF DISTRESS. AAOX4, DENIES PAIN OR SOB AT THIS TIME. O2 TURNED DOWN TO 1L VIA NC, SATS 98%. DENIES ANY NEEDS OR CONCERNS AT THIS TIME. CLIR, BED IN LOWEST POSITION. WILL CONT TO MONITOR.
[2020-06-22 04:30] VITALS: BP 116/64
[2020-06-22 05:50] LABS: HEMOGLOBIN 10.1 g/dL (12-16); LYMPHOCYTE ABS# 3.36 10x3/uL (1.18-3.74); MCH 30.1 pg (26.0-34.0); MCHC 32.6 g/dL (31.0-37.0); MCV 92.5 fL (80.0-100.0); MEAN PLATELET VOLUME 9.2 fL (7.4-10.4); NEUTROPHIL ABS# 6.75 10x3/uL (1.56-6.13); PLATELET COUNT 226 10x3/uL (130-400); RBC 3.35 10x6/uL (4.00-5.40); RDW 13.9 % (11.5-14.5)
[2020-06-22 05:58] LABS: WBC 15.7 10x3/uL (4.8-10.8)
[2020-06-22 06:06] LABS: ALBUMIN 1.4 g/dL (3.4-5.0); ANION GAP 10.3 mmol/L (8-16); BILIRUBIN - TOTAL 0.17 mg/dL (0.2-1.3); CALCIUM 7.4 mg/dL (8.5-10.1); CARBON DIOXIDE 25.1 mmol/L (21.0-32.0); CREATININE - SERUM 0.9 mg/dL (0.6-1.3); MAGNESIUM - SERUM 1.7 mg/dL (1.8-2.4); POTASSIUM - SERUM 3.4 mmol/L (3.5-5.1); PROTEIN - SERUM 4.9 g/dL (6.4-8.2)
--- NOTE | 2020-06-22 07:20 | NUR ---
LYING IN BED, AWAKE/ALERT/ORIENTED, T/R SELF AD JANY, CONT OF B/B WITH BRPs WITH ASSIST AD JANY, DENIES PAIN/OTHER DISCOMFORT AT THIS TIME, CALL LIGHT/PHONE/WATER WITHIN REACH, NO S/S OF ACUTE DISTRESS OBSERVED.
[2020-06-22 08:26] VITALS: BP 132/76
[2020-06-22 09:23] LABS: EOSINOPHILS 1 % (0-7); LYMPHOCYTES 23 % (15-50); MONOCYTES 14 % (2-11); NEUTROPHILS 48 % (40-80); PLATELET ESTIMATE NORMAL; SMUDGE CELLS OCC
[2020-06-22 09:24] LABS: ANISOCYTOSIS OCC; HYPOCHROMASIA OCC
[2020-06-22 13:21] VITALS: BP 135/61
[2020-06-22 16:16] VITALS: BP 138/68
--- NOTE | 2020-06-22 16:18 | MORECARE ---
CASE MANAGEMENT DISCHARGE SUMMARY PATIENT: VENANCIO SOMMER UNIT: [id number] ADM DATE: 06/16/20 AGE: 50 : 74 SEX: F ROOM/BED: D.8641 AUTHOR: JASMINEDOC PHYSICIAN: REFERRING PHYSICIAN: JOAQUIN CASEY MD DATE OF SERVICE: 06/22/20 Case Management Discharge Planning Summary CT Patient Name: VENANCIO SOMMER Attending MD : Joaquin Salvador Medical Record: [id number] Encounter : [id number] Facility : [address] [place] [address] Medical Admission Date : 115:22 Center Discharge Date : [address] [place] [address] Date of : DC Plan ID : [id number] Age/Sex/Martia : 50/ F/M Printed on : 06/22/20 16:17 CT DCP Review Details Anticipated D/C: Expected LOS : Case Status : INITIATED - Initial Reviewe: [id number] - Ellyn Church Initial Review: 06/22/2020 Planned Disposi: 01 - Home or Self Care (Routine Discharge) Final Discharge: - Final Reviewer : : Final Review : Comments CT Entered Date Type Reviewer 06/22/20 15:54 CT Discharge Planning Ellyn Church Comment DC PLAN: Home with daughter ANTICIPATED DC NEEDS: No needs identified CM met with patient to complete initial dc planning assessment. CM educated patient on the CM role and verbal consent given by patient to complete assessment. CM verified patient's address, phone number, and emergency contact phone numbers. Patient lives at home alone. At discharge patient plans to go to her daughter's home and feels this is a safe discharge. States her daughter has 2 steps to enter the one level home. States her PCP is Arielle Reed at [facility]. CM discussed availability of home health, rehab services, and medical equipment. Patient denied known discharge needs at this time. Transportation provider at discharge will be her daughter. CM will continue to follow and will assist as needed with dc plans/needs. DCP Focus Questions & Answers DCP Screen High Risk Factors: None Walking limitation: Patient stated self rated No walking limitation present? Age: 45 - 64 Prior living environment: Lives Alone Disability ranking: Grade 1: No significant disability DCP Evaluation Patient and/or caregiver agree upon recommended Yes discharge plan? Patient's current cognitive status: *Oriented to person, place, situation, time and present Patient gives permission to discuss discharge Nieves Gonzalez - [phone] plans with: (name, relationship and number) Patient's ability to cope with chronic illness d. No chronic illness Does the patient have the ability to pay for or Yes attain post discharge needs / services? Physical Status: Independent with ADL's Equipment needed for post hospitalization: None Is there a likelihood that the patient will No require additional services to return to the preadmission environment? Living Arrangements: Home Alone with Support Results of this evaluation have been discussed Patient with: Patient with capacity for self-care or can be Yes cared for in same environment as prior to hospitalization? Living arrangements comments: Patient lives alone, but at discharge she is going to stay with her daughter Baseline cognitive status: *Oriented to person, place, situation, time and present Physical environment modification needed / No anticipated for discharge: Medication Management: Patient states can afford medications [facility] [place] Does Patient have transportation to get home and Yes to follow-up medical appointments when discharged from the hospital? Would patient like to participate in any Care Not applicable Coordination programs (if applicable): Does the patient have electricity at home? Yes Does the patient have running water in their Yes house? Equipment in use: None Mental health screen: No mental health history Abuse/Neglect: None DCP Re-evaluation Would patient like to participate in any Care Not applicable Coordination programs (if applicable): [facility] VENANCIO SOMMER MR#: [id number] /Age/Sex/[id number] //F /M Attending Physician Name: Donaldo Casey [id number] Patient Account:[id number] [facility] Page -1 of 1 All edits/amendments must be made on the electronic document DICTATION DATE: 06/22/201616 MARINE MACHINIST: JOSE 06/22/201616 RPT#: [id number] AL DATE: STATUS: ADM IN [facility] [address] [place] [address] END OF REPORT
[2020-06-22 20:00] VITALS: BP 133/70
--- NOTE | 2020-06-22 20:35 | NUR ---
ASSESSMENT COMPLETE. NO S/S OF DISTRESS. AAOX4. REPORTS PAIN, WILL MEDICATE PER EMAR. DENIES SOB. VSWNL. MEDS PASSED. DENIES ANY OTHER NEEDS OR CONCERNS AT THIS TIME.
--- NOTE | 2020-06-22 23:00 | NUR ---
SIDE LYING IN BED WATCHING TV ON HER PHONE. NO S/S OF DISTRESS. AAOX4. DENIES ANY NEEDS OR CONCERNS.CLIR. WILL CONT TO MONITOR.
[2020-06-23] VITALS: BP 133/63
[2020-06-23 04:00] VITALS: BP 133/79
[2020-06-23 08:14] VITALS: BP 136/73
[2020-06-23 10:42] LABS: BASOPHILS 0.9 % (0-2); EOSINOPHILS 1.5 % (0-7); HEMATOCRIT 33.8 % (36.0-48.0); HEMOGLOBIN 10.8 g/dL (12-16); IMMATURE GRANULOCYTES 27.5 % (0-5); LYMPHOCYTE ABS# 2.68 10x3/uL (1.18-3.74); LYMPHOCYTES 15.7 % (15-50); MCH 29.7 pg (26.0-34.0); MCV 92.9 fL (80.0-100.0); MEAN PLATELET VOLUME 9.1 fL (7.4-10.4); MONOCYTES 5.8 % (2-11); NEUTROPHIL ABS# 8.32 10x3/uL (1.56-6.13); NEUTROPHILS 48.6 % (40-80); PLATELET COUNT 250 10x3/uL (130-400); RBC 3.64 10x6/uL (4.00-5.40); RDW 13.6 % (11.5-14.5); WBC 17.1 10x3/uL (4.8-10.8)
[2020-06-23 10:52] LABS: ALBUMIN 1.7 g/dL (3.4-5.0); ANION GAP 11.8 mmol/L (8-16); BILIRUBIN - TOTAL 0.15 mg/dL (0.2-1.3); CALCIUM 7.9 mg/dL (8.5-10.1); CARBON DIOXIDE 24.6 mmol/L (21.0-32.0); MAGNESIUM - SERUM 1.5 mg/dL (1.8-2.4); POTASSIUM - SERUM 3.4 mmol/L (3.5-5.1); PROTEIN - SERUM 5.4 g/dL (6.4-8.2)
[2020-06-23 12:39] LABS: BILIRUBIN NEGATIVE (NEGATIVE); KETONE NEGATIVE (NEGATIVE); NITRITE NEGATIVE (NEGATIVE); UROBILINOGEN NORMAL mg/dL (< 2)
[2020-06-23 12:46] LABS: BACTERIA FEW HPF (NONE SEEN); SQUAMOUS EPITHELIAL 0-5 HPF (0-4); WHITE CELLS - URINE OCC HPF (0-4)
[2020-06-23 12:58] VITALS: BP 137/85
--- NOTE | 2020-06-23 14:04 | NUR ---
Nutrition Reassessment/Follow-up: Tolerating regular diet. Reports eating >50% of breakfast this AM. Denies N/V. Diarrhea improving. Diet: Regular No new wt; last wt: 281# (06/18)Adj BW: 167.8# Labs noted: K+ 3.4, Ca 7.9, Mg 1.5, Alb 1.7 Meds noted: Questran, Protonix, Carafate, Florajen, D5-LR @ 125, electrolyte protocol Est needs: 3554-7155 kcal/day (25-30 kcal/kg adj BW) 75-90 g protein/day (1-1.2 g/kg adj BW) 4326-3505 mL fluid/day (1 mL/kcal) or per MD -Encourage PO intake and honor food preferences. -Need new wt. -RD will follow up within 3 days.
[2020-06-23 15:12] VITALS: BP 139/64
--- NOTE | 2020-06-23 19:10 | NUR ---
pt lying in bed awake, alert denies needs. will continue to monitor
[2020-06-23 20:00] VITALS: BP 138/62
[2020-06-24 04:00] VITALS: BP 126/62
[2020-06-24 06:12] LABS: HEMATOCRIT 31.8 % (36.0-48.0); HEMOGLOBIN 10.2 g/dL (12-16); MCH 29.8 pg (26.0-34.0); MCHC 32.1 g/dL (31.0-37.0); MEAN PLATELET VOLUME 9.3 fL (7.4-10.4); NEUTROPHIL ABS# 8.21 10x3/uL (1.56-6.13); PLATELET COUNT 283 10x3/uL (130-400); RBC 3.42 10x6/uL (4.00-5.40); RDW 13.7 % (11.5-14.5); WBC 16.6 10x3/uL (4.8-10.8)
[2020-06-24 06:37] LABS: ALBUMIN 1.7 g/dL (3.4-5.0); ANION GAP 11.1 mmol/L (8-16); BILIRUBIN - TOTAL 0.13 mg/dL (0.2-1.3); CALCIUM 8.2 mg/dL (8.5-10.1); CARBON DIOXIDE 24.6 mmol/L (21.0-32.0); CREATININE - SERUM 0.9 mg/dL (0.6-1.3); MAGNESIUM - SERUM 1.6 mg/dL (1.8-2.4); POTASSIUM - SERUM 3.7 mmol/L (3.5-5.1); PROTEIN - SERUM 5.3 g/dL (6.4-8.2)
--- NOTE | 2020-06-24 08:05 | NUR ---
NURSE GIVES PATIENT HER PO MEDS THIS AM. PLAN OF CARE REVIEWED AND ASSESSMENT HAS BEEN COMPLETED. NAD NOTED. CALLL LIGHT IN REACH
[2020-06-24 08:15] VITALS: BP 136/62
[2020-06-24 10:10] LABS: LYMPHOCYTES 11 % (15-50); MONOCYTES 17 % (2-11); NEUTROPHILS 65 % (40-80); PLATELET ESTIMATE NORMAL
[2020-06-24 12:25] VITALS: BP 112/69
[2020-06-24 20:00] VITALS: BP 127/71
[2020-06-25] VITALS: BP 128/71
--- NOTE | 2020-06-25 03:26 | NUR ---
BLOOD DRAWN FROM AT 0320 AND TAKEN TO LAB
[2020-06-25 03:33] LABS: BASOPHILS 0.5 % (0-2); HEMATOCRIT 30.6 % (36.0-48.0); IMMATURE GRANULOCYTES 16.2 % (0-5); LYMPHOCYTE ABS# 2.44 10x3/uL (1.18-3.74); LYMPHOCYTES 18.9 % (15-50); MCHC 32.7 g/dL (31.0-37.0); MCV 91.9 fL (80.0-100.0); MEAN PLATELET VOLUME 8.8 fL (7.4-10.4); MONOCYTES 5.7 % (2-11); NEUTROPHILS 56.7 % (40-80); PLATELET COUNT 260 10x3/uL (130-400); RBC 3.33 10x6/uL (4.00-5.40); RDW 13.7 % (11.5-14.5); WBC 12.9 10x3/uL (4.8-10.8)
[2020-06-25 03:50] LABS: ALBUMIN 1.8 g/dL (3.4-5.0); ANION GAP 9.1 mmol/L (8-16); BILIRUBIN - TOTAL 0.18 mg/dL (0.2-1.3); CALCIUM 7.6 mg/dL (8.5-10.1); CARBON DIOXIDE 25.6 mmol/L (21.0-32.0); POTASSIUM - SERUM 3.7 mmol/L (3.5-5.1); PROTEIN - SERUM 5.3 g/dL (6.4-8.2)
[2020-06-25 04:00] VITALS: BP 113/62
[2020-06-25 08:08] VITALS: BP 138/76
[2020-06-25 11:45] VITALS: BP 129/53
--- NOTE | 2020-06-25 13:19 | NUR ---
nurse finishes pre oping pt at this time.
--- NOTE | 2020-06-25 13:40 | NUR ---
patient leaves for colonoscopy
--- NOTE | 2020-06-25 14:21 | NUR ---
PATIENT WAS GONE FROM THE ROOM WILL TRY BACK LATER
--- NOTE | 2020-06-25 14:23 | NUR ---
reported to nurse that patient has a superficial clot to her arm, nothing deep. nurse reports to sahbbir garcia
--- NOTE | 2020-06-25 14:43 | NUR ---
DR CASEY CAME IN AT END OF PROCEDURE TO DO EXAM AFTER PROCEDURE HE PERFORMED IN PREVIOUS WEEK. NO ABSCESS FOUND,
[2020-06-25 16:13] VITALS: BP 138/68
[2020-06-25 18:10] VITALS: BP 111/54
--- NOTE | 2020-06-25 21:00 | NUR ---
PT SITTING UP IN BED WATCHING TV. PT AWAKER ALERT AND ORIENTED. PT DENIES PAIN OR DISCOMFORT AT THIS TIME. PT IV INTACT WITH FLUIDS RUNNING. MEDICATION ADMINISTRATION ORDERED EXCEPT BETAPACE HELD DUE TO HR 60. PT REQUESTS ICE WATER AND HOT TEA WHICH WAS GIVEN TO HER. NO FURTHER NEEDS EXPRESSED AT THIS TIME. CALL LIGHT WITHIN REACH, WILL CONTINUE TO MONITOR.
[2020-06-26] VITALS: BP 115/53
[2020-06-26 03:52] LABS: BASOPHILS 0.6 % (0-2); HEMATOCRIT 31.1 % (36.0-48.0); IMMATURE GRANULOCYTES 10.8 % (0-5); LYMPHOCYTE ABS# 2.58 10x3/uL (1.18-3.74); MCH 30.3 pg (26.0-34.0); MCHC 32.2 g/dL (31.0-37.0); MCV 94.2 fL (80.0-100.0); MEAN PLATELET VOLUME 9.7 fL (7.4-10.4); MONOCYTES 10.3 % (2-11); NEUTROPHIL ABS# 4.22 10x3/uL (1.56-6.13); NEUTROPHILS 47.3 % (40-80); PLATELET COUNT 296 10x3/uL (130-400); RDW 13.7 % (11.5-14.5); WBC 8.9 10x3/uL (4.8-10.8)
[2020-06-26 04:00] VITALS: BP 131/75
[2020-06-26 04:03] LABS: ALBUMIN 1.9 g/dL (3.4-5.0); ANION GAP 11.8 mmol/L (8-16); BILIRUBIN - TOTAL 0.14 mg/dL (0.2-1.3); CALCIUM 8.1 mg/dL (8.5-10.1); CREATININE - SERUM 1.1 mg/dL (0.6-1.3); POTASSIUM - SERUM 3.8 mmol/L (3.5-5.1); PROTEIN - SERUM 5.6 g/dL (6.4-8.2)
[2020-06-26 07:00] VITALS: BP 130/76
[2020-06-26 11:00] VITALS: BP 129/78
--- NOTE | 2020-06-26 13:39 | NUR ---
Nutrition Follow-up: S/p colonoscopy yesterday. Tolerating regular diet. Reports eating 100% of breakfast this AM. Denies N/V. Continues to report BM shortly after eating. Diet: Regular No new wt; last wt: 281# (06/18) Labs noted: Glu 108, Ca 8.1, Alb 1.9 Meds noted: Questran, Protonix, Carafate, Florajen, D5-LR @ 125, electrolyte protocol -RD will follow up within 5-7 days if pt still admitted.
[2020-06-26 14:00] VITALS: BP 142/77
--- NOTE | 2020-06-26 15:16 | NUR ---
WALKED 250 FEET WITH A SLIGHT WOBBLE USED GT BELT
--- NOTE | 2020-06-26 16:57 | OP ---
PATIENT NAME: VENANCIO SOMMER MEDICAL RECORD: [id number] :74 LOCATION:D.M2 D.2138 ADMISSION DATE:06/16/20 SURGEON: RICO RDZ MD DATE OF OPERATION: 06/25/2020 PROCEDURE: Colonoscopy. PREOPERATIVE DIAGNOSIS: Diarrhea, abnormal CAT scan. MEDICATION: Propofol per anesthesia. Colonoscopy was performed. The colonoscope was inserted through the rectum and advanced to the cecum, identified by the ileocecal valve and appendiceal orifice. The quality of the prep was fair. In the rectum, sigmoid colon, and distal descending colon was erythema, edema, and friability consistent with colitis. Multiple biopsies were taken and stool samples were taken. This most likely represented ischemic colitis. However, biopsies were taken for confirmation. The right colon appeared normal. The patient tolerated the procedure well. FINAL DIAGNOSES: Colitis in the left colon, most likely compatible with ischemic colitis. PLAN: Check histology results. Advance diet. Check stool samples. We will monitor the patient's symptoms. TRANSINT:[id number] Voice Confirmation ID: [id number] DOCUMENT ID: [id number] RICO RDZ MD at 1657 CC: [id number] DICTATION DATE: 06/25/20 1444 GUIDE ALPINE: 06/25/[address] [facility] [address] [place] [address]
[2020-06-26 20:00] VITALS: BP 135/73
[2020-06-27 05:37] LABS: BASOPHILS 0.5 % (0-2); EOSINOPHILS 2.7 % (0-7); HEMATOCRIT 31.2 % (36.0-48.0); IMMATURE GRANULOCYTES 6.1 % (0-5); LYMPHOCYTE ABS# 2.83 10x3/uL (1.18-3.74); LYMPHOCYTES 29.1 % (15-50); MCH 30.2 pg (26.0-34.0); MCHC 32.1 g/dL (31.0-37.0); MCV 94.3 fL (80.0-100.0); MEAN PLATELET VOLUME 9.6 fL (7.4-10.4); MONOCYTES 7.6 % (2-11); NEUTROPHIL ABS# 5.25 10x3/uL (1.56-6.13); PLATELET COUNT 317 10x3/uL (130-400); RBC 3.31 10x6/uL (4.00-5.40); RDW 13.5 % (11.5-14.5); WBC 9.7 10x3/uL (4.8-10.8)
[2020-06-27 05:54] LABS: ANION GAP 11.2 mmol/L (8-16); BILIRUBIN - TOTAL 0.16 mg/dL (0.2-1.3); CALCIUM 8.1 mg/dL (8.5-10.1); CARBON DIOXIDE 25.6 mmol/L (21.0-32.0); CREATININE - SERUM 1.1 mg/dL (0.6-1.3); POTASSIUM - SERUM 3.8 mmol/L (3.5-5.1); PROTEIN - SERUM 5.8 g/dL (6.4-8.2)
--- NOTE | 2020-06-27 10:34 | NUR ---
PATIENT WALKED 250 FEET INDEPENDENTLY IN PRICE.
--- NOTE | 2020-06-27 13:04 | NUR ---
PATIENT SITTING IN BEDSIDE CHAIR RESP EVEN AND NON LABORED, NO S/S OF DISTRESS, MEDICATIONS ADMISNITERED WITH NO COMPLICATIONS, NO FURTHER NEEDS AT THIS TIME, CLIR, BLP
[2020-06-27 15:01] VITALS: BP 109/52
--- NOTE | 2020-06-27 18:00 | NUR ---
I have reviewed this patient and I concur with the Shift Assessment completed by the Licensed Practical Nurse today this shift.
[2020-06-27 22:50] VITALS: BP 112/53
[2020-06-28 01:04] VITALS: BP 125/73
[2020-06-28 05:06] VITALS: BP 112/64
--- NOTE | 2020-06-28 07:00 | NUR ---
RECIEVED REPORT. ASSUMED CARE OF PATIENT. WHITE BOARD UPDATED. PATIENT SITTING AT BEDSIDE IN RECLINER CHAIR. CALL LIGHT WITHIN REACH. COMPLAINS OF SLIGHT PULSATING PAIN TO LEFT LOWER QUAD. HEAT OFFERED TO BE APPLIED TO AREA TO REDUCE SPASMS FROM COLITIS. PATIENT ACCEPTING OF ALTERNATIVE TREATMENT. DENIES NEEDS AT THIS TIME. NO DISTRESS.
[2020-06-28 07:49] VITALS: BP 107/67
[2020-06-28 10:30] LABS: BASOPHILS 0.6 % (0-2); EOSINOPHILS 2.5 % (0-7); HEMATOCRIT 32.4 % (36.0-48.0); HEMOGLOBIN 10.5 g/dL (12-16); IMMATURE GRANULOCYTES 4.8 % (0-5); LYMPHOCYTE ABS# 2.15 10x3/uL (1.18-3.74); LYMPHOCYTES 25.1 % (15-50); MCH 30.5 pg (26.0-34.0); MCHC 32.4 g/dL (31.0-37.0); MCV 94.2 fL (80.0-100.0); MEAN PLATELET VOLUME 9.3 fL (7.4-10.4); MONOCYTES 5.5 % (2-11); NEUTROPHIL ABS# 5.27 10x3/uL (1.56-6.13); NEUTROPHILS 61.5 % (40-80); PLATELET COUNT 325 10x3/uL (130-400); RBC 3.44 10x6/uL (4.00-5.40); RDW 13.5 % (11.5-14.5); WBC 8.6 10x3/uL (4.8-10.8)
[2020-06-28] MEDS ORDERED: URECHOLINE PO (10:30)
[2020-06-28] MEDS ORDERED: CARAFATE1 G PO (10:30)
[2020-06-28] MEDS ORDERED: PROTONIX40 MG PO (10:30)
[2020-06-28] MEDS ORDERED: BETAPACE 80 MG80 MG PO (10:30)
[2020-06-28] MEDS ORDERED: FLORAJEN3 CAPS460 MG PO (10:30)
[2020-06-28] MEDS ORDERED: QUESTRAN PACKET PO (10:30)
[2020-06-28] MEDS ORDERED: GABAPENTIN100 MG PO (10:30)
--- NOTE | 2020-06-28 10:42 | NUR ---
SPOKE WITH AND PATIENT IS OKAY TO DISCHARGE TO HOME. STATES HE SIGNED OFF ON PATIENT 2 DAYS AGO AND ASKED FOR THE ATTENDING PROVIDER BE CHANGED. GHASSAN BHANDARI NOTIFIED, ORDER PLACED TO SWITCH ATTENDING PROVIDERS TO [facility].
[2020-06-28 10:45] LABS: ALBUMIN 2.1 g/dL (3.4-5.0); BILIRUBIN - TOTAL 0.17 mg/dL (0.2-1.3); CALCIUM 8.3 mg/dL (8.5-10.1); CARBON DIOXIDE 26.8 mmol/L (21.0-32.0); POTASSIUM - SERUM 3.8 mmol/L (3.5-5.1); PROTEIN - SERUM 6.2 g/dL (6.4-8.2)
[2020-06-28 11:50] VITALS: BP 105/56
--- NOTE | 2020-06-28 12:45 | NUR ---
LEFT IJ REMOVED, CATHETER TIP INTACT. PRESSURE HELD X 10 MINUTES, NO BLEEDING FROM SITE. 4X4 GAUZE APPLIED AND SECURED WITH TEGADERM. PATIENT TOLERATED IJ REMOVAL WELL.
--- NOTE | 2020-06-28 13:56 | NUR ---
PATIENT LEFT UNIT VIA WHEELCHAIR AT THIS TIME WITH ALL PERSONAL BELONGINGS. PATIENT IN NO DISTRESS UPON DISCHARGE FROM UNIT. PATIENT DISCHARGED TO HOME WITH HER DAUGHTER. DELIMER RETURNED TO ICU VIA FRITZ MCBRIDE.
--- NOTE | 2020-06-28 17:50 | MORECARE ---
CASE MANAGEMENT DISCHARGE SUMMARY PATIENT: VENANCIO SOMMER UNIT: [id number] ADM DATE: 06/16/20 AGE: 50 : 74 SEX: F ROOM/BED: D.1733 AUTHOR: JASMINE,DOC PHYSICIAN: REFERRING PHYSICIAN: DAVON BLACKWELL MD DATE OF SERVICE: 06/28/20 Case Management Discharge Planning Summary CT Patient Name: VENANCIO SOMMER Attending MD : DAVON MINAYA Medical Record: [id number] Encounter : [id number] Facility : [address] [place] [address] Medical Admission Date : 115:22 Center Discharge Date : 06/28/[address] [place] [address] Date of : DC Plan ID : [id number] Age/Sex/Martia : 50/ F/M Printed on : 06/28/20 17:49 CT DCP Review Details Anticipated D/C: Expected LOS : Case Status : INITIATED - Initial Reviewe: [id number] - Ellyn Church Initial Review: 06/22/2020 Planned Disposi: 01 - Home or Self Care (Routine Discharge) Final Discharge: - Final Reviewer : : Final Review : Comments CT Entered Date Type Reviewer 06/22/20 15:54 CT Discharge Planning Ellyn Church Comment DC PLAN: Home with daughter ANTICIPATED DC NEEDS: No needs identified CM met with patient to complete initial dc planning assessment. CM educated patient on the CM role and verbal consent given by patient to complete assessment. CM verified patient's address, phone number, and emergency contact phone numbers. Patient lives at home alone. At discharge patient plans to go to her daughter's home and feels this is a safe discharge. States her daughter has 2 steps to enter the one level home. States her PCP is Arielle Reed at [facility]. CM discussed availability of home health, rehab services, and medical equipment. Patient denied known discharge needs at this time. Transportation provider at discharge will be her daughter. CM will continue to follow and will assist as needed with dc plans/needs. DCP Focus Questions & Answers DCP Screen High Risk Factors: None Walking limitation: Patient stated self rated No walking limitation present? Age: 45 - 64 Prior living environment: Lives Alone Disability ranking: Grade 1: No significant disability DCP Evaluation Patient and/or caregiver agree upon recommended Yes discharge plan? Patient's current cognitive status: *Oriented to person, place, situation, time and present Patient gives permission to discuss discharge Nieves Gonzalez - [phone] plans with: (name, relationship and number) Patient's ability to cope with chronic illness d. No chronic illness Does the patient have the ability to pay for or Yes attain post discharge needs / services? Physical Status: Independent with ADL's Equipment needed for post hospitalization: None Is there a likelihood that the patient will No require additional services to return to the preadmission environment? Living Arrangements: Home Alone with Support Results of this evaluation have been discussed Patient with: Patient with capacity for self-care or can be Yes cared for in same environment as prior to hospitalization? Living arrangements comments: Patient lives alone, but at discharge she is going to stay with her daughter Baseline cognitive status: *Oriented to person, place, situation, time and present Physical environment modification needed / No anticipated for discharge: Medication Management: Patient states can afford medications [facility]): [facility] Does Patient have transportation to get home and Yes to follow-up medical appointments when discharged from the hospital? Would patient like to participate in any Care Not applicable Coordination programs (if applicable): Does the patient have electricity at home? Yes Does the patient have running water in their Yes house? Equipment in use: None Mental health screen: No mental health history Abuse/Neglect: None DCP Re-evaluation Would patient like to participate in any Care Not applicable Coordination programs (if applicable): [facility] VENANCIO SOMMER MR#: [id number] /Age/Sex/[id number]-[id number]-03 //F /M Attending Physician Name: DAVON BLACKWELL [id number] Patient Account:[id number] [facility] Page -1 of 1 All edits/amendments must be made on the electronic document DICTATION DATE: 06/28/201748 RN ADMISSIONS: JOSE 06/28/201748 RPT#: [id number] DC DATE:06/28/20 STATUS: DIS IN [facility] [address] [place] [address] END OF REPORT
[2020-06-30 16:08] LABS: OVA + PARASITE EXAM Final report (())
== END 2020-06-28 14:00 | disposition home or self-care (01) | DRG 871 ==
LOC: D.ER 21:53 → D.LD 06-16 01:00 → OBSVTIME 06-16 01:00 → D.ICU 06-16 14:21 → D.M2 06-16 15:22 → D.ICU 06-16 15:22 → D.M2 06-19 12:01
PROVIDERS: Family Medicine; Internal Medicine Nephrology; Internal Medicine Pulmonary Disease; Obstetrics & Gynecology; ADMIT Emergency Medicine; ATTEND Emergency Medicine
PROC: 05HN33Z Insertion of Infusion Device into Left Internal Jugular Vein, Percutaneous Approach (ICD-10-PCS; principal; 2020-06-17)
PROC: B544ZZA Ultrasonography of Left Jugular Veins, Guidance (ICD-10-PCS; 2020-06-17)
PROC: 0DJD8ZZ Inspection of Lower Intestinal Tract, Via Natural or Artificial Opening Endoscopic (ICD-10-PCS; 2020-06-25)
DX: A41.9 Sepsis, unspecified organism (principal); R65.21 Severe sepsis with septic shock; N17.0 Acute kidney failure with tubular necrosis; K72.00 Acute and subacute hepatic failure without coma; N39.0 Urinary tract infection, site not specified; E87.2 Acidosis; I48.20 Chronic atrial fibrillation, unspecified; A09 Infectious gastroenteritis and colitis, unspecified; R33.9 Retention of urine, unspecified; G89.18 Other acute postprocedural pain; E88.09 Other disorders of plasma-protein metabolism, not elsewhere classified

== ENCOUNTER → 2020-07-18 08:05 | Outpatient (CLI) | payer BC ==
[2020-06-17 10:11] VITALS: BMI 44.8
[~2020-07-18 08:05] MED LIST changes: +BETAPACE 80 MG80 MG PO; +CARAFATE1 G PO; +FLORAJEN3 CAPS460 MG PO; +GABAPENTIN100 MG PO; +PROTONIX40 MG PO; +QUESTRAN PACKET PO; +URECHOLINE PO
== END | disposition home or self-care (01) ==
LOC: D.CT 08:05
PROVIDERS: ATTEND Internal Medicine Gastroenterology
DX: K55.9 Vascular disorder of intestine, unspecified (principal); R10.32 Left lower quadrant pain